=== PATIENT | female | born 1960 | race Caucasian/White ===

== ENCOUNTER → 2020-02-19 12:18 | Outpatient (CLI) | payer OTHER, SELFPAY ==
--- NOTE | ~2020-02-19 | XR_ITS ---
EXAMINATION: XR chest 2V 02/19/2020 12:47 INDICATION: Cough PROCEDURE: 2 view chest COMPARISON: 09/15/2008 FINDINGS: The lungs are clear. The cardiomediastinal silhouette is within normal limits. There are no pleural effusions. There is no pneumothorax suspected. IMPRESSION: 1: NO ACUTE CARDIOPULMONARY DISEASE. Reviewed, dictated and finalized at location A.
--- NOTE | ~2020-02-19 | XR_ITS ---
EXAMINATION: XR lumbar spine 2-3V, XR sacrum coccyx min 2V EXAM DATE: 02/19/2020 12:47 INDICATION: Lumbosacral pain. TECHNIQUE: Lumber spine frontal, lateral, lateral L5-S1 projections for interpretation. Additional f rontal, steep frontal, lateral projections of the sacrum and coccyx. There are no prior studies for c omparison. FINDINGS: The vertebral bodies are aligned in the AP dimension. Vertebral body and disc heights are well-maintained. There is mild to moderate lumbar facet arthropathy. Sacrum, sacroiliac joints, sacra l arcuate lines are intact. Paraspinal soft tissue is unremarkable. Calcifications in the pelvis are believed to be phleboliths. IMPRESSION: Mild to moderate lumbar facet arthropathy. Unremarkable sacrum. Reviewed, dictated and finalized at location B. IMPRESSION: Mild to moderate lumbar facet arthropathy. Unremarkable sacrum.
== END ==
PROVIDERS: PCP Family Medicine; Visit Provider Family Medicine
DX: M54.5 Low back pain (principal); R05 Cough
CPT/HCPCS: 71046; 72100; 72220

== ENCOUNTER → 2020-08-02 08:56 | Outpatient (CLI) | payer OTHER, SELFPAY ==
--- NOTE | ~2020-08-02 | US_ITS ---
US abdomen complete EXAMINATION: US Abdomen Complete INDICATION: Epigastric pain PROCEDURE: Realtime High Resolution abdomen ultrasound. COMPARISON: No prior studies for comparison FINDINGS: Gallbladder within normal limits. No gallstones, pericholecystic fluid, gallbladder wall t hickening or biliary dilatation. Common bile duct measures 4.6 mm. Liver echotexture within normal limits without focal mass. Pancreas within normal limits. Pancreati c tail is obscured by bowel gas. Spleen is unremarkeable. Renal echotexture is within normal limits bilaterally without hydronephrosis, contour deforming mass or renal stone. Right kidney measures 10 c m. Left kidney measures 10.1 cm. Visualized aspects of the aorta and IVC are within normal limits. Portal vein is patent. No sonograph ic Walls's sign indicated by the technologist. IMPRESSION: 1: Normal abdominal ultrasound. Reviewed, dictated and finalized at location A.
== END ==
PROVIDERS: PCP Family Medicine; Visit Provider Family Medicine
DX: R10.13 Epigastric pain (principal)
CPT/HCPCS: 76700

== ENCOUNTER 2021-07-01 16:56 | Emergency (ER) | payer SELFPAY ==
[2021-07-01 17:13] VITALS: BP 149/57; PULSE 88; RESP 16; TEMP 37; O2SAT 97
--- NOTE | 2021-07-01 17:23 | ED.URI ---
HPI - URI/Sore Throat General Chief Complaint: Upper Respiratory Infection Stated Complaint: cough Time Seen by Provider: 07/01/21 17:24 Source: patient, family, RN notes reviewed and old records reviewed Mode of arrival: ambulatory Limitations: no limitations History of Present Illness HPI Narrative: 61 year old female who presents to [facility] care with complaints of cough for the past 4 days with noted sinus congestion and drainage starting today. Patient reports no shortness of breath or any wheezing, respirations even and nonlabored with no tachypnea or accessory muscle use. Patient states that her throat is sore aggravated by swallowing. Patient denies any known fevers sweats or chills denies any body aches, reports that she has had COVID. MD elicited complaint: cough Related Data Home Medications Medication Instructions Recorded Confirmed atorvastatin 20 mg tablet 20 mg PO DAILY 02/19/20 02/19/20 icosapent ethyl 1 gram capsule 2 gm PO BID 02/19/20 02/19/20 metformin 500 mg tablet See Rx Instructions .ROUTE BID 07/26/20 tablet Vascepa 07/01/21 calcium carbonate-vitamin D3 tablet PO 07/01/21 Allergies Allergy/AdvReac Type Severity Reaction Status Date / Time No Known Allergies Allergy Verified 09/02/20 15:53 Review of Systems Review of Systems: CONSTITUTIONAL: Denies fever, chills, or sweats. EYES: Denies visual changes, redness, or discharge. ENT: Positive rhinorrhea, congestion facial pressure, sore throat, no otalgia. CARDIOVASCULAR: Denies chest pain, palpitations, or edema. RESPIRATORY: Positive for dry hacking cough denies dyspnea. GASTROINTESTINAL: Denies abdominal pain, nausea, vomiting, or diarrhea. GENITOURINARY: Denies dysuria or hematuria. SKIN: Denies rash or itching. MUSCULOSKELETAL: Denies back pain, joint pain, or myalgia. NEUROLOGIC: Denies headache, numbness, or weakness. PSYCHIATRIC: Denies anxiety or depression. 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 Essential (primary) hypertension Gastro-esophageal reflux disease without esophagitis Vitamin B12 deficiency Vitamin D deficiency Surgical History Surgical History (Updated 07/05/21 @ 11:57 by Shante Grider NP) No history of previous surgery Family History Family History Mother Depression Father Family history of alcoholism Family history of congestive heart failure Family history of heart disease in male family member before age 55, Onset Age: 65 Other Acute myocardial infarction Diabetes mellitus Family history of coronary artery disease Hypertension Social History Social History (Updated 07/05/21 @ 12:04 by Shante Grider NP) Smoking status: Former smoker Second hand tobacco smoke exposure: No Additional smoking assessment comments: quit 2005 Alcohol intake: former Alcohol use details: social Substance use: never Gender identity (if verbalized by the patient): Female Comments At time of signature, agree with nursing past medical, surgical, social and family history. There is no relevant family history pertinent to the presenting complaint Exam Narrative: GENERAL: Well-appearing, well-nourished, and in no acute distress. HEAD: Normocephalic, atraumatic. EYES: PERRLA and EOMI. ENT: Nares red with yellow tinged rhinorrhea no epistaxis. Mucous membranes moist.TM's normal with good light reflex, throat red with no lesions or exudates, tonsils red with minimal swelling post nasal drainage present. NECK: Supple.no lymphadenopathy CHEST: Clear to auscultation. No respiratory distress.cough SAO2 97% on room air HEART: Regular rate and rhythm. No murmur heard. Normal peripheral puls
== END 2021-07-01 18:08 | disposition home or self-care (01) ==
PROVIDERS: Emergency Provider Registered Nurse; PCP Family Medicine
DX: J32.9 Chronic sinusitis, unspecified (principal); R05 Cough; Z20.822 Contact with and (suspected) exposure to COVID-19; I25.10 Atherosclerotic heart disease of native coronary artery without angina pectoris; I10 Essential (primary) hypertension; K21.9 Gastro-esophageal reflux disease without esophagitis; E55.9 Vitamin D deficiency, unspecified
CPT/HCPCS: 87081; 87426; 87880; 99213; C9803; G0463

== ENCOUNTER → 2022-07-07 16:07 | Outpatient (CLI) | payer OTHER, SELFPAY ==
--- NOTE | ~2022-07-07 | MM_ITS ---
EXAMINATION: MM screening [facility] HISTORY: Screening mammogram TECHNIQUE: Craniocaudal and mediolateral oblique 3-D tomosynthesis images were obtained and synthetic 2-D images were generated. CAD analysis was submitted and interpreted. COMPARISON: 02/14/2014, 12/17/2012 BREAST PARENCHYMAL COMPOSITION: There are scattered areas of fibroglandular density. FINDINGS: We'll cysts are noted in the right breast. There is no suspicious mass, calcification, or a rchitectural distortion to suggest malignancy in either breast. There has been no suspicious interval change. IMPRESSION: 1. No mammographic evidence of malignancy. 2. Recommend routine screening mammography in one year. BI-RADS Category 2: Benign finding(s). Reviewed, dictated and finalized at location A.
== END ==
PROVIDERS: PCP Family Medicine; Visit Provider Physician Assistant
DX: Z12.31 Encounter for screening mammogram for malignant neoplasm of breast (principal)
CPT/HCPCS: 77063; 77067

== ENCOUNTER → 2022-08-10 08:12 | Outpatient (CLI) | payer OTHER, SELFPAY ==
--- NOTE | ~2022-08-10 | DEXA_ITS ---
Bone Density Report Name: MARY CABRERA Age: 62 Sex: Female Ethnicity: White Date of : 1960 Indication: postmenopausal; screening for osteoporosis; height loss; Referring Provider: Li Biggs Study: Bone densitometry was performed. Exam Date: August 10, 2022 Accession number: [id number] Bone Density: Region BMD T-score Z-score Classification AP Spine (L1-L4) 0.897 -1.4 0.3 Osteopenia Femoral Neck (Left) 0.759 -0.8 0.7 Normal Total Hip (Left) 0.977 0.3 1.5 Normal Femoral Neck (Right) 0.820 -0.3 1.2 Normal Total Hip (Right) 0.936 0.0 1.1 Normal Total Hip Mean 0.957 0.2 1.3 Normal World Health Organization criteria for BMD impression classify patients as: Normal (T-score at or above -1.0), Osteopenia (T-score between -1.0 and -2.5), or Osteoporosis (T-score at or below -2.5). 10-year Fracture Risk(1): Major Osteoporotic Fracture 7.4% Hip Fracture 0.4% Reported Risk Factors: [place] (), Neck BMD=0.759, BMI=29.8 (1) FRAX(R) Version 3.08. Fracture probability calculated for an untreated patient. Fracture probability may be lower if the patient has received treatment. Clinical Information Provided by Patient: Has used the following medications: Vitamin D, Calcium Patient maximum height was 62 Menopause Age: 53 Does not regularly consume dairy products Drinks caffeinated beverages Onset of menses at age 10 Number of children 2 Impression: The patient has low bone mass, based on the Total Spine T-score. The patient has an estimated ten-year risk of hip fracture of 0.4% and an estimated ten-year risk of major fracture of 7.4%, based on the WHO FRAX algorithm. Discussion: BONE DENSITY IS LOW AT ONE OR MORE SKELETAL SITES. This patient's lowest T-score is low at one or more skeletal sites. It meets the World Health Organization's (WHO) criteria for ?low bone mass? (T-score between -1.0 and -2.5). The patient's 10-year risk of fracture as calculated by FRAX is less than the threshold where pharmacological therapy is recommended by the National Osteoporosis Foundation (NOF). However, all treatment decisions require clinical judgment and consideration of individual patient factors, including patient preferences, comorbidities, previous drug use, risk factors not captured in the FRAX model (e.g., frailty, falls, vitamin D deficiency, increased bone turnover, interval significant decline in bone density) and possible under or overestimation of fracture risk by FRAX. The patient should follow a healthful lifestyle (good nutrition with adequate calcium and vitamin D, and appropriate weight-bearing exercise). Follow-Up: Consider repeating this study in 2 to 3 years to reassess this patient's status, or sooner if there is some new clinical indication. Reported by: [facility] on
== END ==
PROVIDERS: PCP Family Medicine; Visit Provider Physician Assistant
DX: Z78.0 Asymptomatic menopausal state (principal); M85.88 Other specified disorders of bone density and structure, other site
CPT/HCPCS: 77080

== ENCOUNTER 2023-07-08 10:53 | Outpatient (CLI) | payer OTHER, SELFPAY ==
--- NOTE | ~2023-07-08 | CT_ITS ---
Non-contrast Head CT History: Dizziness Technique: Axial non-contrast imaging of the brain was performed. Dose reduction technique was used on this scan by utilizing automated exposure control and iterative reconstruction technique. The dose -length product (DLP) was 529.67 mGy-cm. Findings: There is no evidence of intracranial hemorrhage, mass lesion, or acute infarct. Brain par enchyma appears normal. The ventricles and subarachnoid spaces are normal in size. The calvarium ap pears normal. The visualized paranasal sinuses and mastoid air cells are clear. Impression: No significant abnormality seen. Reviewed, dictated and finalized at location . Impression: No significant abnormality seen.
== END 2023-07-08 10:54 | disposition home or self-care (01) ==
PROVIDERS: PCP Family Medicine; Visit Provider Physician Assistant
DX: R42 Dizziness and giddiness (principal)
CPT/HCPCS: 70450

== ENCOUNTER 2025-02-26 13:40 | Outpatient (CLI) | payer MEDICARE, SELFPAY ==
[2025-02-26 14:54] LABS: Influenza A QL RT-PCR Negative (Negative); Influenza B QL RT-PCR Negative (Negative); RSV RNA, RT-PCR Negative (Negative); SARS-CoV-2 RNA PCR Negative (Negative)
--- OUTSIDE RECORDS SUMMARY | 2025-02-26 15:30 | XMS_ITS ---
Author Organization [facility] Address [address] [address] Care Team Providers Care Mixed Crop Farmer Name Role Phone Sol Schaffer MD Primary Care Provider Waqar Calderon Unavailable [phone] Stan Lee Unavailable Unavailable REASON FOR VISIT pt assist Encounters Encounter Location Date Provider Diagnosis [facility] [address] [facility] [address] [address] 02/02/2025 Waqar Mcpherson PLAN OF TREATMENT Next Appt Details Provider Name:Waqar Mcpherson, 06/29/2025 01:30:00 PM, [address] [facility] [address], [place], [address],
--- OUTSIDE RECORDS SUMMARY | 2025-02-26 15:30 | XMS_ITS | Clinical Summary ---
Author Organization [facility] Address [address] [place] [address] Care Team Providers Care Pilot Manager Name Role Phone Sol Schaffer MD Primary Care Provider Source Comments [facility],non-owned Affiliates and Associated Physician Practices is amultiple site organization consisting of ambulatory clinics and hospital sitesin [place], [place], [place] and [place]. This disclosure is being madepursuant to the Care Everywhere program and may not contain all information available regarding this patient. Last updated 18.[facility] Allergies No known active allergies Medications * Be aware that medications may not be up to date on this document. Alwaysverify current medications with the patient. 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 Gender Identity Not on file Sexual Orientation Not on file Last Filed Vital Signs Vital Sign Reading Time Taken Comments Blood Pressure 124/80 11/08/2017 2:31 PM GROCERY CLERK Pulse 88 11/08/2017 2:31 PM GROCERY CLERK Temperature 38.7 C (101.7 F) 11/08/2017 2:31 PM GROCERY CLERK Respiratory Rate 20 11/08/2017 2:31 PM GROCERY CLERK Oxygen Saturation - - Inhaled Oxygen Concentration - - Weight - - Height - - Body Mass Index - - Plan of Treatment Health Maintenance Due Date Last Done Comments BONE DENSITY TESTING 1960 COLOGUARD (AGES 45-75) - COL ON CA SCREENING 1960 COLON MONITORING 1960 COLONOSCOPY - COLON CA SCREENING 1960 CT COLONOGRAPHY - COLON CA SCREENING 1960 Colorectal Cancer Screening 1960 FIT - COLON CA SCREENING 1960 FLEX SIG - COLON CA SCREENING 1960 MAMMOGRAM 1960 HEPATITIS C SCREENING 04/06/1976 DTAP/TDAP/TD VACCINES (1 - Tdap) 1977 PNEUMOCOCCAL VACCINE 50+ (1 of 1 - PCV) 2008 ZOSTER VACCINE (1 of 2) 2008 COVID-19 VACCINE (1 - 2023-2 5 season) 2024 DEPRESSION SCREENING 11/08/2024 INFLUENZA VACCINE (Season Ended) 2025 Respiratory Syncytial Virus (RSV) Vaccine Pt: or over 60 yrs (1 - 1-dose 75+ series) 2033 HEPATITIS B VACCINE Aged Out No longe r eligible based on patient's age to complete this topic HIB VACCINE Aged Out No longer eligi ble based on patient's age to complete this topic HPV VACCINE Aged Out No longer eligi ble based on patient's age to complete this topic MENINGOCOCCAL (Group B) VACC INE SHARED DECISION-MAKING Aged Out No longer eligibl e based on patient's age to complete this topic MENINGOCOCCAL GROUPS A/C/Y/W VACCINE Aged Out No longer eligible b ased on patient's age to complete this topic Insurance Care Teams Pilot Manager Relationship Specialty Start Date End Date Sol Schaffer MD [address] [place] [address] PCP - General Family Medicine 11/08/17
--- OUTSIDE RECORDS SUMMARY | 2025-02-26 15:30 | XMS_ITS | Patient Health Record ---
Author Organization [facility] Address [address] [place] [address] Care Team Providers Care Cloth Bleaching Supervisor Name Role Phone Sol Schaffer MD Primary Care Provider Waqar Calderon Unavailable [phone] Stan Lee Unavailable Unavailable ALLERGIES No Known Allergies RESULTS Component Value Reference Range Notes HEMOGLOBIN A1c Reviewed date:06/27/2024 08:20:31 AM Interpretation: Performing Lab: Notes/Report: HEMOGLOBIN A1c 5.9 4.0 - 6.0 % COMMENT MICROALBUMIN, RANDOM URINE ( W/CREATININE) Reviewed date:06/27/2024 08:20:25 AM Interpretation: Performing Lab: Notes/Report: CREATININE, RANDOM URINE 238 X MICROALBUMIN 1.2 MICROALBUMIN/CREATININE RATI O, RANDOM URINE 5 -Ultrasound: Thyroid Reviewed date:07/13/2024 12:55:11 PM Interpretation: Performing Lab: Notes/Report: CBC (INCLUDES DIFF/PLT) Reviewed date:01/02/2025 07:43:21 AM Interpretation: Performing Lab: Notes/Report: WHITE BLOOD CELL COUNT 8.7 4.3 - 10.0 RED BLOOD CELL COUNT 4.25 3.90 - 4.90 M/uL HEMOGLOBIN 11.5 13.6 - 16.5 g/dL HEMATOCRIT 35.8 35.5 - 44 % MCV 84.2 82.0 - 99.0 fL MCH 27.1 27.2 - 32.6 pg MCHC 32.1 31.5 - 35.5 g/dL RDW 14.9 11.5 - 14.5 % MPV 11.5 9.3 - 12.4 fL PLATELET COUNT 237 140 - 350 K/uL DIFF TYPE Automated^Automated ABSOLUTE LYMPHOCYTES ABSOLUTE PLASMA CELLS ABSOLUTE PROLYMPHOCYTES ABSOLUTE REACTIVE LYMPHOCYTES CBC MORPHOLOGY NOTE PLASMA CELLS PLATELET ESTIMATION PROLYMPHOCYTES NEUTROPHILS BAND NEUTROPHILS ABSOLUTE BAND NEUTROPHILS METAMYELOCYTES ABSOLUTE METAMYELOCYTES MYELOCYTES ABSOLUTE MYELOCYTES PROMYELOCYTES ABSOLUTE PROMYELOCYTES ABSOLUTE NEUTROPHILS LYMPHOCYTES REACTIVE LYMPHOCYTES ABSOLUTE LYMPHOCYTES MONOCYTES ABSOLUTE MONOCYTES EOSINOPHILS ABSOLUTE EOSINOPHILS BASOPHILS ABSOLUTE BASOPHILS BLASTS ABSOLUTE BLASTS NUCLEATED RBC ABSOLUTE NUCLEATED RBC COMMENT(S) WBC, Adjusted LIPID PANEL Reviewed date:01/01/2025 05:43:28 PM Interpretation: Performing Lab: Notes/Report: CHOLESTEROL, TOTAL 146 0 - 199 mg/dL TRIGLYCERIDES 278 0 - 149 mg/dL HDL CHOLESTEROL 49 >41 - mg/dL LDL-CHOLESTEROL 41 0 - 99 mg/dL PT FASTING NON-HDL CHOLESTEROL JOSE CHOL/HDLC RATIO X HEMOGLOBIN A1c Reviewed date:01/02/2025 07:43:15 AM Interpretation: Performing Lab: Notes/Report: HEMOGLOBIN A1c 6.0 4.0 - 6.0 % COMMENT TSH, 3RD GENERATION Reviewed date:01/02/2025 07:43:08 AM Interpretation: Performing Lab: Notes/Report: TSH, 3RD GENERATION 1.03 0.47 - 4.68 ilU/mL MICROALBUMIN, RANDOM URINE ( W/CREATININE) Reviewed date:01/02/2025 07:42:49 AM Interpretation: Performing Lab: Notes/Report: CREATININE, RANDOM URINE 238 X MICROALBUMIN 1.3 MICROALBUMIN/CREATININE RATI O, RANDOM URINE 5 COMPREHENSIVE METABOLIC PANE L Reviewed date:01/02/2025 07:42:59 AM Interpretation: Performing Lab: Notes/Report: SODIUM 139 137 - 145 mmol/L POTASSIUM 4.6 3.4 - 5.1 mmol/L CHLORIDE 105 98 - 107 mmol/L CARBON DIOXIDE 24 22 - 30 mmol/L ANION GAP 10 7 - 16 mmol/L UREA NITROGEN (BUN) 23 7 - 17 mg/dL CREATININE 0.73 0.50 - 1 mg/dL GLUCOSE 170 74 - 106 mg/dL CALCIUM 8.9 8.4 - 10.2 mg/dL PROTEIN, TOTAL 7.1 6.5 - 8.6 g/dL ALBUMIN 4.1 3.5 - 5.0 g/dL ALKALINE PHOSPHATASE 116 38 - 126 U/L BILIRUBIN, TOTAL 0.4 0.2 - 1.3 mg/dL AST 41 14 - 42 U/L ALT 43 < = 35 - U/L eGFR NON-AFR. BRUNEIAN eGFR ALBUMIN/GLOBULIN RATIO GLOBULIN BUN/CREATININE RATIO EGFR REASON FOR REFERRAL No Information MEDICATIONS Medication SIG (Take, Route, Frequency, Duration) Notes Start Date End Date Status Fish Oil 1000 MG 2 Tablets Orally Two Times a Day 12/09/2021 Active Metoprolol Succinate ER 25 MG 1/2 tablet Orally Once a day Active Ozempic (0.25 or 0.5 MG/DOSE) 2 MG/3ML inject 0.5 mg under the skin once a week 28 Active Ezetimibe 10 MG 1 tablet Orally Once a day Active EmulisToOmmven Delica Plus [id number] - DXCODE: E11.65, NIDDM) Use 1 Lancet once a day for 90 days 04/17/2024 Active Omeprazole 40 MG 1 capsule 30 minutes before morning meal Orally Once a day Active Vitamin D3 2000 IU 1 Tablet Orally Once a day Active EmulisTouch Verio - dxcode: e11.65, nidd m) use 1 test strip In Vitro Once a Day for 90 days 04/17/2024 Active Atorvastatin Calcium 20 MG 1 tablet Oral ly Once a day Active Vitamin B12 1000 MCG 2.5 tablets Orally Once a day Active EmulisToOmmven Verio Flex System w/Device DXCODE: E11.65, NIDDM) as directed to monitor blood sugars once a day for 90 days 04/17/2024 Active Multivitamin Adult - as directed Orally Active L-Lysine 500 MG 1 Tablet Orally Once a Day Active Aspir-81 81 MG 1 tablet Orally Once a day Active SOCIAL HISTORY Tobacco Use: Social History Observation Description Date Details (start date - stop date) Never Smoker NA - NA Sex Assigned At : Social History Observation Description Sex Assigned At Unknown Tobacco Use/Smoking Question Answer Notes Are you a nonsmoker Alcohol Screen Question Answer Notes Did you have a drink containing alcohol in the p ast year? No Points 0 Interpretation Negative Tobacco use other than smoking: Question Answer Notes Are you an other tobacco user? 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) Active confirmed Vitamin B deficiency (21107246) Problem Essential (primary) hypertension (I10) Active confirmed Essential hypertension (76738382) VITAL SIGNS Heart Rate 78 /min 12/29/2024 Blood pressure diastolic 78 mm Hg 12/29/2024 Height 62.0 in 12/29/2024 Blood pressure systolic 132 mm Hg 12/29/2024 Weight 170.8 lbs 12/29/2024 BMI 31.24 kg/m2 12/29/2024 Encounters Encounter Location Date Provider Diagnosis [facility] [address] [address] 06/23/2024 Waqar Oiknine Type 2 diabetes mellitus with hyperglycemia E11.65 ; Essential (primary) hypertension I10 ; Nontoxic multinodular goiter E04.2 ; Hyperlipidemia, unspecified E78.5 ; Deficiency of other specified B group vitamins E53.8 and Vitamin D deficiency, unspecified E55.9 [facility] [address] [address] 12/29/2024 Waqar Oiknine Type 2 diabetes mellitus with hyperglycemia E11.65 ; Essential (primary) hypertension I10 ; Nontoxic multinodular goiter E04.2 ; Hyperlipidemia, unspecified E78.5 ; Deficiency of other specified B group vitamins E53.8 and Vitamin D deficiency, unspecified E55.9 [facility] [address] [address] 06/23/2024 Waqar Oiknine Nontoxic multinodula r goiter E04.2 [facility] [address] [address] 03/27/2024 Waqar Oiknine [facility] [address] [address] 04/17/2024 Waqar Oiknine Type 2 diabetes mellitus with hyperglycemia E11.65 [facility] [address] [address] 05/24/2024 Waqar Oiknine [facility] [address] [address] 06/26/2024 Waqar Oiknine [facility] [address] [address] 08/02/2024 Waqar Oiknine [facility] [address] [address] 11/27/2024 Waqar Oiknine [facility] [address] [address] 12/18/2024 Waqar Oiknine [facility] [address] [address] 01/19/2025 Waqra Oiknine [facility] [address] [address] 02/02/2025 Waqar Oilizabethine ASSESSMENTS Encounter Date Diagnosis Assessment Notes Treatment Notes Treatment Clinical Notes 06/23/2024 Type 2 diabetes mellitus with hyperglycemia (ICD-10 - E11.65) 06/23/2024 Essential (primary) hypertension (ICD-10 - I10) 12/29/2024 Type 2 diabetes mellitus with hyperglycemia (ICD-10 - E11.65) 12/29/2024 Essential (primary) hypertension (ICD-10 - I10) 06/23/2024 Nontoxic multinodular goiter (ICD-10 - E04.2) 04/17/2024 Type 2 diabetes mellitus with hyperglycemia (ICD-10 - E11.65) 06/23/2024 Nontoxic multinodular goiter (ICD-10 - E04.2) 12/29/2024 Nontoxic multinodular goiter (ICD-10 - E04.2) 06/23/2024 Hyperlipidemia, unspecified (ICD-10 - E78.5) 12/29/2024 Hyperlipidemia, unspecified (ICD-10 - E78.5) 06/23/2024 Deficiency of other specified B group vitamins (ICD-10 - E53.8) 12/29/2024 Deficiency of other specified B group vitamins (ICD-10 - E53.8) 06/23/2024 Vitamin D deficiency, unspecified (ICD-10 - E55.9) 12/29/2024 Vitamin D deficiency, unspecified (ICD-10 - E55.9) 06/23/[address] Waqar toth dictates using Yipit Speaking software. Supplier Manager variances may occur. Since her last visit the patient is generally well. Blood pressure Remains Stable. Weight remains stable. We reviewed medications. We reviewed the blood sugar log book. We agreed to continue the current medications for diabetes, hypertension and anemia. We will repeat an A1c with urine microalbumin today. The patient also has a nontoxic stable of time. She has not had to stay dysphonia. I stressed to the point of a low glycemic diet with physical activity. I stressed the importance of proper hydration. We will see the patient again in 6 months for follow-up as needed. We discussed potentially raising the dose of ozempic in the near future if needed 12/29/[address] Waqar toth dictates using Yipit Speaking software. Supplier Manager variances may occur. Since our last visit the patient has felt generally well. Blood pressure and weight remain stable. Glycemic control remains optimal. We are trying to get the patient on the patient assistance program for OZEMPIC. I provided her with a sample in the meantime. I stressed the point of a low glycemic diet along with a daily or a physical activity. She is asymptomatic on today's visit. I will repeat a complete battery of tests that she has not had any recent lab work. She will continue following up with all of her providers as indicated will see her again in 6 months for follow-up or sooner if needed PLAN OF TREATMENT Next Appt Details Provider Name:Waqar Mcpherson, 06/29/2025 01:30:00 PM, [address], [address], Insurance Providers Payer Name Payer Address Payer Phone Subscriber Number Group Number Insured Name Patient Relationship to Insured Coverage Start Date Coverage End Date [employer] [address] [place] [address] [id number] AnhShea Self - patient is the insured MEDICAL (GENERAL) HISTORY Medical History History ICD Code Type II DM HTN Hyperlipidemia CAD s/p Stent Placement x 1 2015 cardiac cath 02/13/2022 clean per pt Surgical History Surgery Date(Month/Year) Stent Placement x 1 Tubal Ligation Cardiac cath 02/2022
--- OUTSIDE RECORDS SUMMARY | 2025-02-26 15:30 | XMS_ITS ---
Author Organization [facility] Address [address] [address] Care Team Providers Care Front Of House Manager Name Role Phone Sol Schaffer MD Primary Care Provider Waqar Calderon Unavailable [phone] Stan Lee Unavailable Unavailable REASON FOR VISIT Patient Assistance Encounters Encounter Location Date Provider Diagnosis [facility] [address], [place] [address] 01/19/2025 Waqar Mcpherson PLAN OF TREATMENT Next Appt Details Provider Name:Waqar Mcpherson, 06/29/2025 01:30:00 PM, [facility] [address], [place], [address],
--- OUTSIDE RECORDS SUMMARY | 2025-02-26 15:30 | XMS_ITS ---
Author Organization [facility] Address [address] [address] Care Team Providers Care Safety Intern Name Role Phone Sol Schaffer MD Primary Care Provider Waqar Calderon Unavailable [phone] Stan Lee Unavailable Unavailable ALLERGIES No Known Allergies RESULTS Component Value Reference Range Notes CBC (INCLUDES DIFF/PLT) Reviewed date:01/02/2025 07:43:21 AM [...] < = 35 - U/L eGFR NON-AFR. MONTENEGRIN eGFR ALBUMIN/GLOBULIN RATIO GLOBULIN BUN/CREATININE RATIO EGFR REASON FOR VISIT Type II DM, Multinodular Goiter MEDICATIONS Medication SIG (Take, Route, Frequency, Duration) Notes Start Date End Date Status PlayArt Labsio - dxcode: e11.65, nidd m) use 1 test strip In Vitro Once a Day for 90 days 04/17/2024 Active Chumen Wenwen Flex System w/Device DXCODE: E11.65, NIDDM) as directed to monitor blood sugars once a day for 90 days 04/17/2024 Active Multivitamin Adult - as directed Orally Active L-Lysine 500 MG 1 Tablet Orally Once a Day Active Aspir-81 81 MG 1 tablet Orally Once a day Active Ezetimibe 10 MG 1 tablet Orally Once a day Active Omeprazole 40 MG 1 capsule 30 minutes before morning meal Orally Once a day Active Vitamin D3 2000 IU 1 Tablet Orally Once a day Active Vitamin B12 1000 MCG 2.5 tablets Orally Once a day Active Fish Oil 1000 MG 2 Tablets Orally Two Times a Day 12/09/2021 Active Metoprolol Succinate ER 25 MG 1/2 tablet Orally Once a day Active Ozempic (0.25 or 0.5 MG/DOSE) 2 MG/3ML inject 0.5 mg under the skin once a week 28 Active OneTouch Delica Plus [id number] - DXCODE: E11.65, NIDDM) Use 1 Lancet once a day for 90 days 04/17/2024 Active Atorvastatin Calcium 20 MG 1 tablet Oral ly Once a day Active SOCIAL HISTORY Tobacco Use: Social History Observation Description Date Details (start date - stop date) Never Smoker NA - NA Sex Assigned At : Social History Observation Description Sex Assigned At Unknown Tobacco Use/Smoking Question Answer Notes Are you a nonsmoker Tobacco use other than smoking: Question Answer Notes Are you an other tobacco user? No VITAL SIGNS BMI 31.24 kg/m2 12/29/2024 Blood pressure systolic 132 mm Hg 12/29/19 25 Blood pressure diastolic 78 mm Hg 025 Heart Rate 78 /min 12/29/2024 Height 62.0 in 12/29/2024 Weight 170.8 lbs 12/29/2024 Encounters Encounter Location Date Provider Diagnosis [facility] [address] [place] [address] 12/29/2024 Waqar Mcpherson Type 2 diabetes mellitus with hyperglycemia E11.65 ; Essential (primary) hypertension I10 ; Nontoxic multinodular goiter E04.2 ; Hyperlipidemia, unspecified E78.5 ; Deficiency of other specified B group vitamins E53.8 and Vitamin D deficiency, unspecified E55.9 ASSESSMENTS Encounter Date Diagnosis Assessment Notes Treatment Notes Treatment Clinical Notes 12/29/2024 Type 2 diabetes mellitus with hyperglycemia (ICD-10 - E11.65) 12/29/2024 Essential (primary) hypertension (ICD-10 - I10) 12/29/2024 Nontoxic multinodular goiter (ICD-10 - E04.2) 12/29/2024 Hyperlipidemia, unspecified (ICD-10 - E78.5) 12/29/2024 Deficiency of other specified B group vitamins (ICD-10 - E53.8) 12/29/2024 Vitamin D deficiency, unspecified (ICD-10 - E55.9) 12/29/[address] Waqar toth dictates using Cytosorbents Speaking software. Overhauler Helper variances may occur. Since our last visit [...] or sooner if needed PLAN OF TREATMENT Medication Medication Name Sig Start Date Stop Date Notes Omeprazole 40 MG 1 capsule 30 minutes before morning meal Orally Once a day Vitamin D3 2000 IU 1 Tablet Orally Once a day Fish Oil 1000 MG 2 Tablets Orally Two Times a Day 12/09/2021 Metoprolol Succinate ER 25 MG 1/2 tablet Orally Once a day Ozempic (0.25 or 0.5 MG/DOSE ) 2 MG/3ML inject 0.5 mg under the skin once a week 28 Atorvastatin Calcium 20 MG 1 tablet Orally Once a day Treatment Notes Assessment Notes Other Dr. Waqar hairston ctates using Cytosorbents Speaking software. Overhauler Helper variances may occur. Since our last visit [...] months for follow-up or sooner if needed Next Appt Details Follow Up: 6 Months, Reason: Provider Name:Waqar Mcpherson, 06/29/2025 01:30:00 PM, [address], [address], Progress Notes * Examination Category Sub-Category Detail Notes General Examination GENERAL APPEARANCE: in no ac yonas distress, well developed, obese HEAD: normocephalic, atrau matic EYES: pupils equal, round, reactive to light and accommodation NECK: neck supple, full ra nge of motion, no cervical lymphadenopathy, No carotid bruit, bilaterally HEART: S1, S2 regular rate and rhythm, no audible murmurs LUNGS: clear to auscultatio n bilaterally, no wheezes, rales, rhonchi ABDOMEN: normal, bowel sounds present, soft, nontender, nondistended NEUROLOGIC: alert and oriented. SKIN: warm and moist with no evidence of rash or jaundice EXTREMITIES: no edema THYROID The thyroid is palpa ble and nontender. There are no palpable thyroid nodules History and Physical Notes * HPI (History of Present Illness) Category Sub-Category Detail Notes Interim History Last Dilated Eye exam Date: 11/2023 Opthamologist [facility] ([place], [place]) Diabetes mellitus The patient is being seen for Diabetes type II The patient was diagnosed wi th diabetes in June of 2018 Sugars have been running 97-220 mg/dL pe r pt Complications from diabetes include no k nown complications The current diabetes medicat ion(s) regimen consists of see specific dosage in current medicatio ns section The last HbA1C was :: 5.9 % (06-23-2024 ) The patient has been monitor ing their blood sugars yes The patient has been monitor ing blood sugars twice a day The patient has had recent m ultiple hypoglycemic episode unknown The patient uses an insulin pump no The patient uses a CGMS (Con t Glucose Monitoring Device) no Goiter The patient's last ultrasound wa s 06/2024 thyroid ultrasound which confirms the presence of a large thyroid gland which is heterogeneous in appearance. The right thyroid measures 4.06 x 1.23 x 1.6 cm. The isthmus measures 0.26 m. The left thyroid lobe measures 2.5 x 1.71 x 1.73 cm. Within the left mid/inferior was a complex nodule measuring 2.81 x 1.73 cm. This nodule previously 2.6-1.47 cm. There is minimal nodule. Overall there has not been any changes in terms of size or characteristics of this nodule when compared to the last time was performed on 06/29/2023
== END 2025-02-26 13:41 | disposition home or self-care (01) ==
PROVIDERS: PCP Family Medicine; Visit Provider Family Medicine
DX: J06.9 Acute upper respiratory infection, unspecified (principal); Z20.822 Contact with and (suspected) exposure to COVID-19
CPT/HCPCS: 87637

== ENCOUNTER 2025-04-12 14:38 | Outpatient (CLI) | payer MEDICARE, SELFPAY ==
--- NOTE | ~2025-04-12 | MM_ITS ---
EXAMINATION: MM screening gabriela BI w harris HISTORY: Screening TECHNIQUE: Craniocaudal and mediolateral oblique 3-D tomosynthesis images were obtained and synthetic 2-D images were generated. CAD analysis was submitted and interpreted. COMPARISON: 07/07/2022 through 06/30/2008. BREAST PARENCHYMAL COMPOSITION: The breasts are almost entirely fatty. FINDINGS: There is no evidence of suspicious mass, calcification, or architectural distortion to sug gest malignancy in either breast. There has been no suspicious interval change. IMPRESSION: 1. No mammographic evidence of malignancy. 2. Recommend routine screening mammography in one year. BI-RADS Category 1: Negative Reviewed, dictated and finalized at location []
== END 2025-04-12 14:39 | disposition home or self-care (01) ==
LOC: MICIMG 14:39
PROVIDERS: PCP Family Medicine; Visit Provider Family Medicine
DX: Z12.31 Encounter for screening mammogram for malignant neoplasm of breast (principal)
CPT/HCPCS: 77063; 77067